=== PATIENT | male | born 1955 | race African-American/Black ===

== ENCOUNTER 2021-05-31 09:03 | Observation (INO) ==
[2021-05-31] MEDS ORDERED: ASPIRIN 325 MG TABLET PO STA (09:21)
[2021-05-31 09:28] LABS: Basophils % 0.2 % (0.0-0.8); Eosinophils # 0.1 10*3/uL (0.0-0.87); Eosinophils % 0.9 % (0.00-10.9); Hematocrit 45.5 VOL% (42.0-52.0); Hemoglobin 15.1 GM/DL (14.0-18.0); Immature Granulocytes % 0.2 %; Immature Granulocytes Absolute 0.02 #; Lymphocytes # 1.2 10*3/uL (1.4-4.0); Lymphocytes % 14.6 % (21.2-54.2); Mean Corpuscular HGB Conc 33.2 GM/DL (32-36); Mean Platelet Volume 8.9 FL (9.6-12.0); Monocytes % 8.6 % (1.7-12.7); Neutrophils % 75.5 % (38.7-73.9); Platelet Count 277 T/CUMM (130-400); Red Blood Count 4.89 MC/CUMM (3.8-5.5); Red Cell Distribution Width 12.3 % (9.3-17.3); White Blood Count 8.5 T/CUMM (4-12)
[2021-05-31] MEDS: NITROGLYCERIN SL 0.4 MG TABLET SL PRN ×2 (09:30→09:35)
[2021-05-31 09:49] LABS: Albumin 3.8 G/DL (3.4-5.0); Bilirubin,Total 0.4 MG/DL (0.20-1.00); Calcium 8.9 MG/DL (8.5-10.1); Osmolality,Calculated 283.3 MOS/KG (273-304); Potassium 3.5 MMOL/L (3.5-5.1); Total Protein 7.3 G/DL (6.4-8.2)
[2021-05-31] MEDS ORDERED: ONDANSETRON 4 MG/2 ML VIAL IV PRN (10:15)
[2021-05-31] MEDS ORDERED: ACETAMINOPHEN 325 MG TABLET PO PRN (10:15)
[2021-05-31] MEDS ORDERED: DIAZEPAM 5 MG TABLET PO ONE (10:18)
[2021-05-31] MEDS ORDERED: diphenhydrAMINE CAP 25 MG CAPSULE PO ONE (10:18)
[2021-05-31] MEDS ORDERED: SODIUM CHLORIDE 0.45% 1,000 ML IV SCH (10:30)
[2021-05-31] MEDS ORDERED: NITROGLYCERIN DRIP 50 MG/250 ML BOTTLE IV ONE (12:25)
[2021-05-31] MEDS ORDERED: VERAPAMIL 5 MG/2 ML VIAL ONE (12:25)
[2021-05-31] MEDS ORDERED: HYDROmorphone 1 MG/1 ML SYRINGE ONE ×2 (12:25→14:17)
[2021-05-31] MEDS ORDERED: MIDAZOLAM 2 MG/2 ML VIAL ONE ×2 (12:25→13:18)
[2021-05-31] MEDS ORDERED: ENOXAPARIN 60 MG/0.6 ML SYRINGE ONE (13:30)
[2021-05-31] MEDS ORDERED: hydrALAZINE 20 MG/1 ML VIAL ONE (13:32)
[2021-05-31] MEDS ORDERED: LABETALOL 20 MG/4 ML SYRINGE IV ONE (13:36)
[2021-05-31] MEDS ORDERED: GLUCAGON 1 MG VIAL IM PRN (14:04)
[2021-05-31] MEDS ORDERED: DEXTROSE 10% 250 ML BAG IV PRN (14:18)
[2021-05-31] MEDS: INSULIN REGULAR 100 UNIT/ML SUBCUT SCH (18:44)
[2021-05-31] MEDS ORDERED: cloNIDine 0.1 MG TABLET PO SCH (21:00)
[2021-05-31] MEDS: cilostazoL 50 MG TABLET PO SCH (21:06)
[2021-05-31] MEDS: METOPROLOL TARTRATE 25 MG TABLET PO SCH (21:06)
[2021-05-31] MEDS: MYCOPHENOLATE MOFETIL 250 MG CAPSULE PO SCH (21:06)
[2021-05-31] MEDS: TACROLIMUS 0.5 MG CAPSULE PO SCH (21:15)
[2021-06-01 05:21] LABS: Basophils % 0.1 % (0.0-0.8); Eosinophils # 0.1 10*3/uL (0.0-0.87); Eosinophils % 0.5 % (0.00-10.9); Hematocrit 41.3 VOL% (42.0-52.0); Hemoglobin 13.6 GM/DL (14.0-18.0); Immature Granulocytes % 0.4 %; Immature Granulocytes Absolute 0.04 #; Lymphocytes # 1.3 10*3/uL (1.4-4.0); Lymphocytes % 13.6 % (21.2-54.2); Mean Corpuscular HGB Conc 32.9 GM/DL (32-36); Mean Corpuscular Volume 94.1 FL (87-102); Neutrophils % 76.4 % (38.7-73.9); Platelet Count 245 T/CUMM (130-400); Red Blood Count 4.39 MC/CUMM (3.8-5.5); Red Cell Distribution Width 12.2 % (9.3-17.3); White Blood Count 9.6 T/CUMM (4-12)
[2021-06-01 05:47] LABS: Calcium 9.2 MG/DL (8.5-10.1); Osmolality,Calculated 283.4 MOS/KG (273-304); Potassium 3.5 MMOL/L (3.5-5.1); Risk Ratio 1.68
[2021-06-01] MEDS ORDERED: amLODIPine 10 MG TABLET PO SCH (09:00)
[2021-06-01] MEDS ORDERED: LOSARTAN 25 MG TABLET PO SCH (09:00)
[2021-06-01] MEDS ORDERED: ASPIRIN EC 81 MG TABLET PO SCH (09:00)
[2021-06-01] MEDS ORDERED: ROSUVASTATIN 20 MG TABLET PO SCH (09:00)
[2021-06-01] MEDS ORDERED: MULTIVITAMIN (CENTRUM) TABLET PO SCH (09:00)
[2021-06-01] MEDS ORDERED: CLOPIDOGREL 75 MG TABLET PO SCH (09:00)
[2021-06-01] MEDS ORDERED: PANTOPRAZOLE 40 MG TABLET PO SCH (09:00)
[2021-06-01] MEDS: METOPROLOL TARTRATE 25 MG TABLET PO SCH (09:45)
[2021-06-01] MEDS: INSULIN REGULAR 100 UNIT/ML SUBCUT SCH (09:45)
[2021-06-01] MEDS: TACROLIMUS 0.5 MG CAPSULE PO SCH (09:46)
[2021-06-01] MEDS: MYCOPHENOLATE MOFETIL 250 MG CAPSULE PO SCH (09:47)
[2021-06-01] MEDS: cilostazoL 50 MG TABLET PO SCH (09:52)
[2021-06-01 12:22] VITALS: BP 132/54
== END 2021-06-01 13:24 | disposition home or self-care (01) ==
LOC: N.EDINP 09:03 → N.ED 09:03 → N.TELEN 12:10
PROVIDERS: ADMIT Internal Medicine Cardiovascular Disease; ATTEND Internal Medicine Cardiovascular Disease
PROC: CLCCHCL (ICD-10-PCS; 2021-05-31 11:45)